=== PATIENT | male | born 1975 | race Caucasian/White ===

== ENCOUNTER 2017-07-12 09:33 | Day surgery (SDC) | payer OTHER ==
[2017-07-09 14:04] VITALS: BMI 31.0
[2017-07-12 09:53] LABS: MCH 28.6 pg (25.7-33.7); MCHC 34.5 g/dl (32.0-35.9); MEAN CELL VOLUME 82.9 fl (80-96); MEAN PLT VOLUME 7.6 fl (7.5-11.1); PLATELET COUNT 255 K/MM3 (134-434); RDW 13.3 % (11.9-15.9); WHITE BLOOD COUNT 8.1 K/mm3 (4.0-10.0)
[2017-07-12 10:14] LABS: ANION GAP 4 (8-16); CALCIUM 8.7 mg/dL (8.5-10.1); CO2 30 mmol/L (21-32); GLUCOSE,RANDOM 93 mg/dL (74-106)
[2017-07-12 10:22] LABS: INR 0.97 (0.82-1.09)
[2017-07-12 10:25] LABS: ACTIVATED PTT 34.1 SECONDS (26.9-34.4)
[2017-07-12] MEDS ORDERED: LIDOCAINE VISCOUS 2% ORAL/TOP 20 ML UNIT-DOSE CUP MM ONE (10:49)
[2017-07-12 11:19] VITALS: TEMP 97.6
[2017-07-12 12:05] VITALS: BP 109/60; PULSE 60
--- NOTE | 2017-07-12 12:36 | PROC ---
Transesophageal Echocardiogram - Pre-Procedure Indications: Evaluate for embolus (h/o TIA) Risks and Benefits Explained: Yes Consent on Chart: Yes - Procedure Procedure Done: in Endoscopy Suite Findings: Scope passed easily. Pt tolerated procedure well. Normal biventricular function, no RWMA seen. All 4 valves appear morphologically normal, no masses/vegetations, with normal valve function. No intracardiac masses/thrombi seen. No patent foramen ovale on color imaging performed in multiple imaging planes. Bubble study x 2 done with good opacification of RA-- no bubbles appeared in [place]. full report to follow
== END 2017-07-12 12:05 | disposition home or self-care (01) ==
LOC: JASU-ENDO 09:33
PROVIDERS: ATTEND Internal Medicine Cardiovascular Disease
PROC: B246ZZ4 Ultrasonography of Right and Left Heart, Transesophageal (ICD-10-PCS; principal; 2017-07-12 10:00)
DX: G45.9 Transient cerebral ischemic attack, unspecified (principal)
CPT/HCPCS: 36415; 80048; 85027; 85610; 85730; 93312; 93325